=== PATIENT | female | born 1955 | race Caucasian/White ===

== ENCOUNTER → 2016-12-27 | Outpatient (CLI) | payer BC | END | disposition home or self-care (01) | LOC: CDC 14:45 | DX: M75.121 Complete rotator cuff tear or rupture of right shoulder, not specified as traumatic (principal); M25.511 Pain in right shoulder; M75.01 Adhesive capsulitis of right shoulder; M75.40 Impingement syndrome of unspecified shoulder | CPT/HCPCS: 93000 ==